=== PATIENT | female | born 1965 | race Caucasian/White ===

== ENCOUNTER 2018-10-07 16:05 | Emergency (ER) | payer OTHER, SELFPAY ==
[2018-10-07 16:18] VITALS: BP 203/83; PULSE 59; RESP 18; TEMP 36.6; O2SAT 98; BMI 38.4
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
--- NOTE | 2018-10-07 16:52 | PC.NURSE ---
[place] [facility] AT BEDSIDE. OFFICERS Giorgio SANCHEZ AND LEONARDO
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
--- NOTE | 2018-10-07 17:46 | PC.NURSE ---
SPOKE WITH OFFICER DANIEL AND HE ADVISED THAT HE HAS PASSED ALONG THE APPROPRIATE INFORMATION TO THE PT FOR REPORTING PURPOSES. PT IS OKAY FOR D/C FROM ALL STANDPOINTS.
[2018-10-07 18:15] VITALS: BP 143/89; PULSE 62; RESP 16; TEMP 36.6; O2SAT 97
== END 2018-10-07 18:17 | disposition home or self-care (01) ==
LOC: ER 16:16 → UTC 16:17
PROVIDERS: Emergency Provider Nurse Practitioner Family; PCP Family Medicine
DX: S05.92XA Unspecified injury of left eye and orbit, initial encounter (principal); Y04.2XXA Assault by strike against or bumped into by another person, initial encounter; Y92.019 Unspecified place in single-family (private) house as the place of occurrence of the external cause
CPT/HCPCS: 70200; 99201